=== PATIENT | male | born 1970 | race Caucasian/White ===

== ENCOUNTER 2018-03-16 18:59 | Inpatient (IN) | payer MEDICAID ==
[~2018-03-16] VITALS: Ht 188 cm; Wt 65.8 kg
[2018-03-16] MEDS ORDERED: CREON (PANCRELI1 CAP PO (19:07)
[2018-03-16] MEDS ORDERED: NEURONTIN800 MG PO (19:07)
[2018-03-16] MEDS ORDERED: LISINOPRIL10 MG PO (19:07)
[2018-03-16] MEDS ORDERED: DOLOPHINE HCL10 MG PO (19:08)
[2018-03-16] MEDS ORDERED: OXYCODONE HCL10 MG PO (19:08)
[2018-03-16] MEDS ORDERED: NOVOLIN 70/30 110 ML (19:08)
[2018-03-16 19:42] LABS: BASOPHILS 0.5 % (0-2); EOSINOPHILS 2.6 % (0-7); HEMOGLOBIN 16.5 g/dL (13.5-17.5); IMMATURE GRANULOCYTES 0.4 % (0-5); LYMPHOCYTES 45.5 % (15-50); MCH 29.9 pg (26.0-34.0); MCHC 33.7 g/dL (31.0-37.0); MCV 88.8 fL (80.0-100.0); MEAN PLATELET VOLUME 9.6 fL (7.4-10.4); MONOCYTES 6.3 % (2-11); NEUTROPHILS 44.7 % (40-80); PLATELET COUNT 316 10x3/uL (130-400); RBC 5.52 10x6/uL (4.20-6.10); RDW 14.4 % (11.5-14.5); WBC 8.1 10x3/uL (4.8-10.8)
[2018-03-16 20:29] LABS: ALBUMIN 3.5 g/dL (3.4-5.0); ALKALINE PHOSPHATASE 223 U/L (46-116); ALT (SGPT) 38 U/L (10-68); AMYLASE - SERUM 48 U/L (25-115); BILIRUBIN - TOTAL 0.47 mg/dL (0.2-1.3); CALC OSMOLALITY 297 mosm/kg (275-300); CALCIUM 9.1 mg/dL (8.5-10.1); CARBON DIOXIDE 28.2 mmol/L (21.0-32.0); CHLORIDE - SERUM 98 mmol/L (98-107); CREATININE - SERUM 0.8 mg/dL (0.6-1.3); GLUCOSE 331 mg/dL (74-106); LIPASE 246 U/L (73-393); POTASSIUM - SERUM 3.5 mmol/L (3.5-5.1); PROTEIN - SERUM 7.5 g/dL (6.4-8.2); SODIUM 143 mmol/L (136-145); UREA NITROGEN 12 mg/dL (7-18); eGFR NON AFRICAN AMERICAN > 90 mL/min (90-120)
[2018-03-16 21:30] VITALS: BP 118/88
[2018-03-16 21:52] LABS: APPEARANCE CLEAR (CLEAR); BILIRUBIN NEGATIVE (NEGATIVE); COLOR YELLOW (YELLOW); GLUCOSE 1000 mg/dL (NEGATIVE); KETONE SMALL mg/dL (NEGATIVE); NITRITE NEGATIVE (NEGATIVE); PROTEIN NEGATIVE (NEGATIVE); SPECIFIC GRAVITY 1.015 (1.005-1.020); UROBILINOGEN NORMAL (NORMAL)
[2018-03-16 21:55] LABS: BACTERIA FEW /hpf (NONE SEEN); RED CELLS - URINE 0-5 /hpf (0-5)
[2018-03-16 23:40] LABS: UDS - AMPHET NEGATIVE QUAL (NEGATIVE); UDS - BARB NEGATIVE QUAL (NEGATIVE); UDS - BENZO NEGATIVE QUAL (NEGATIVE); UDS - COCAINE NEGATIVE QUAL (NEGATIVE); UDS - OPIATE NEGATIVE QUAL (NEGATIVE); UDS - PCP NEGATIVE QUAL (NEGATIVE); UDS - THC POSITIVE QUAL (NEGATIVE)
[2018-03-17] MEDS ORDERED: PROTONIX40 MG PO (00:08)
[2018-03-17] MEDS ORDERED: LEVEMIR FLEX TOUCH P (00:12)
[2018-03-17 00:26] VITALS: BP 139/93; BMI 18.6
[2018-03-17 04:00] VITALS: BP 141/80
[2018-03-17 06:40] LABS: BASOPHILS 0.2 % (0-2); EOSINOPHILS 1.5 % (0-7); HEMATOCRIT 44.8 % (42.0-54.0); IMMATURE GRANULOCYTES 0.2 % (0-5); LYMPHOCYTES 30.7 % (15-50); MCH 29.9 pg (26.0-34.0); MCHC 33.5 g/dL (31.0-37.0); MCV 89.2 fL (80.0-100.0); MONOCYTES 10.9 % (2-11); NEUTROPHILS 56.5 % (40-80); RBC 5.02 10x6/uL (4.20-6.10); RDW 14.7 % (11.5-14.5); WBC 8.5 10x3/uL (4.8-10.8)
[2018-03-17 07:15] LABS: PLATELET COUNT 221 10x3/uL (130-400)
[2018-03-17 07:23] LABS: ALBUMIN 3.7 g/dL (3.4-5.0); ALKALINE PHOSPHATASE 218 U/L (46-116); ALT (SGPT) 34 U/L (10-68); BILIRUBIN - TOTAL 0.92 mg/dL (0.2-1.3); CALC OSMOLALITY 282 mosm/kg (275-300); CALCIUM 8.5 mg/dL (8.5-10.1); CHLORIDE - SERUM 98 mmol/L (98-107); CREATININE - SERUM 0.7 mg/dL (0.6-1.3); MAGNESIUM - SERUM 1.6 mg/dL (1.8-2.4); PHOSPHOROUS 3.8 mg/dL (2.5-4.9); POTASSIUM - SERUM 3.1 mmol/L (3.5-5.1); PROTEIN - SERUM 7.5 g/dL (6.4-8.2); SODIUM 141 mmol/L (136-145); UREA NITROGEN 13 mg/dL (7-18); eGFR NON AFRICAN AMERICAN > 90 mL/min (90-120)
[2018-03-17 07:25] LABS: GLUCOSE 142 mg/dL (74-106)
[2018-03-17 08:08] VITALS: BP 145/92
[2018-03-17 13:00] VITALS: BMI 18.6
[2018-03-17 13:40] VITALS: BP 136/87
[2018-03-17 14:21] VITALS: Ht 188 cm; Wt 65.8 kg
[2018-03-17] MEDS ORDERED: CYMBALTA30 MG PO (15:03)
[2018-03-17 20:00] VITALS: BP 146/93
[2018-03-18 05:47] VITALS: BP 130/83
[2018-03-18 06:00] LABS: BASOPHILS 0.1 % (0-2); EOSINOPHILS 3.1 % (0-7); HEMATOCRIT 40.7 % (42.0-54.0); HEMOGLOBIN 13.7 g/dL (13.5-17.5); IMMATURE GRANULOCYTES 0.3 % (0-5); LYMPHOCYTES 26.5 % (15-50); MCHC 33.7 g/dL (31.0-37.0); MCV 89.1 fL (80.0-100.0); MEAN PLATELET VOLUME 9.8 fL (7.4-10.4); MONOCYTES 6.6 % (2-11); NEUTROPHILS 63.4 % (40-80); PLATELET COUNT 179 10x3/uL (130-400); RBC 4.57 10x6/uL (4.20-6.10); RDW 14.5 % (11.5-14.5); WBC 6.7 10x3/uL (4.8-10.8)
[2018-03-18 06:31] LABS: ALBUMIN 3.5 g/dL (3.4-5.0); ALKALINE PHOSPHATASE 205 U/L (46-116); ALT (SGPT) 35 U/L (10-68); BILIRUBIN - TOTAL 0.96 mg/dL (0.2-1.3); CALCIUM 8.7 mg/dL (8.5-10.1); CARBON DIOXIDE 29.1 mmol/L (21.0-32.0); CHLORIDE - SERUM 99 mmol/L (98-107); CREATININE - SERUM 0.6 mg/dL (0.6-1.3); PROTEIN - SERUM 7.6 g/dL (6.4-8.2); SODIUM 138 mmol/L (136-145); eGFR NON AFRICAN AMERICAN > 90 mL/min (90-120)
[2018-03-18 06:34] LABS: CALC OSMOLALITY 272 mosm/kg (275-300); GLUCOSE 87 mg/dL (74-106); UREA NITROGEN 6 mg/dL (7-18)
[2018-03-18 09:13] VITALS: BP 158/94
[2018-03-18 12:28] VITALS: BP 140/83
[2018-03-18 19:27] VITALS: BP 134/81
[2018-03-19 05:31] LABS: BASOPHILS 0.2 % (0-2); EOSINOPHILS 4.5 % (0-7); HEMATOCRIT 40.2 % (42.0-54.0); HEMOGLOBIN 13.6 g/dL (13.5-17.5); IMMATURE GRANULOCYTES 0.4 % (0-5); LYMPHOCYTES 23.7 % (15-50); MCH 30.1 pg (26.0-34.0); MCHC 33.8 g/dL (31.0-37.0); MCV 88.9 fL (80.0-100.0); MEAN PLATELET VOLUME 10.1 fL (7.4-10.4); NEUTROPHILS 63.2 % (40-80); PLATELET COUNT 159 10x3/uL (130-400); RBC 4.52 10x6/uL (4.20-6.10); RDW 14.3 % (11.5-14.5); WBC 5.1 10x3/uL (4.8-10.8)
[2018-03-19 05:45] LABS: APTT 29.6 SECONDS (22.8-39.4); INR 0.99 (0.85-1.17); PROTIME 12.7 SECONDS (11.6-15.0)
[2018-03-19 05:50] LABS: ALBUMIN 3.4 g/dL (3.4-5.0); ALKALINE PHOSPHATASE 224 U/L (46-116); ALT (SGPT) 41 U/L (10-68); CALC OSMOLALITY 280 mosm/kg (275-300); CALCIUM 8.6 mg/dL (8.5-10.1); CHLORIDE - SERUM 97 mmol/L (98-107); CREATININE - SERUM 0.7 mg/dL (0.6-1.3); GLUCOSE 288 mg/dL (74-106); POTASSIUM - SERUM 3.6 mmol/L (3.5-5.1); PROTEIN - SERUM 6.9 g/dL (6.4-8.2); SODIUM 136 mmol/L (136-145); UREA NITROGEN 6 mg/dL (7-18); eGFR NON AFRICAN AMERICAN > 90 mL/min (90-120)
[2018-03-19 11:40] VITALS: BP 157/95
[2018-03-19 20:00] VITALS: BP 133/84
[2018-03-20 04:00] VITALS: BP 148/99
[2018-03-20 05:33] LABS: BASOPHILS 0.2 % (0-2); EOSINOPHILS 4.8 % (0-7); HEMATOCRIT 42.8 % (42.0-54.0); HEMOGLOBIN 14.5 g/dL (13.5-17.5); IMMATURE GRANULOCYTES 0.2 % (0-5); LYMPHOCYTES 31.4 % (15-50); MCHC 33.9 g/dL (31.0-37.0); MCV 88.6 fL (80.0-100.0); MEAN PLATELET VOLUME 10.4 fL (7.4-10.4); MONOCYTES 7.2 % (2-11); NEUTROPHILS 56.2 % (40-80); PLATELET COUNT 174 10x3/uL (130-400); RBC 4.83 10x6/uL (4.20-6.10); RDW 14.2 % (11.5-14.5); WBC 5.3 10x3/uL (4.8-10.8)
[2018-03-20 06:01] LABS: ALBUMIN 3.4 g/dL (3.4-5.0); ALKALINE PHOSPHATASE 258 U/L (46-116); BILIRUBIN - TOTAL 0.85 mg/dL (0.2-1.3); CALCIUM 8.9 mg/dL (8.5-10.1); CARBON DIOXIDE 26.1 mmol/L (21.0-32.0); CHLORIDE - SERUM 95 mmol/L (98-107); CREATININE - SERUM 0.7 mg/dL (0.6-1.3); POTASSIUM - SERUM 3.5 mmol/L (3.5-5.1); PROTEIN - SERUM 7.7 g/dL (6.4-8.2); SODIUM 131 mmol/L (136-145); eGFR NON AFRICAN AMERICAN > 90 mL/min (90-120)
[2018-03-20 06:02] LABS: ALT (SGPT) 52 U/L (10-68); CALC OSMOLALITY 275 mosm/kg (275-300); GLUCOSE 390 mg/dL (74-106); UREA NITROGEN 3 mg/dL (7-18)
[2018-03-20 09:20] VITALS: BP 142/95
[2018-03-20 14:08] VITALS: BP 127/82
[2018-03-20 20:00] VITALS: BP 139/94
[2018-03-21 04:00] VITALS: BP 120/80
[2018-03-21 06:15] LABS: BASOPHILS 0.2 % (0-2); EOSINOPHILS 4.7 % (0-7); HEMOGLOBIN 13.7 g/dL (13.5-17.5); IMMATURE GRANULOCYTES 0.4 % (0-5); LYMPHOCYTES 27.1 % (15-50); MCH 30.1 pg (26.0-34.0); MCHC 34.3 g/dL (31.0-37.0); MCV 87.9 fL (80.0-100.0); MEAN PLATELET VOLUME 10.2 fL (7.4-10.4); MONOCYTES 8.8 % (2-11); NEUTROPHILS 58.8 % (40-80); PLATELET COUNT 162 10x3/uL (130-400); RBC 4.55 10x6/uL (4.20-6.10); RDW 14.2 % (11.5-14.5); WBC 4.7 10x3/uL (4.8-10.8)
[2018-03-21 06:36] LABS: ALKALINE PHOSPHATASE 238 U/L (46-116); ALT (SGPT) 63 U/L (10-68); BILIRUBIN - TOTAL 0.63 mg/dL (0.2-1.3); CALC OSMOLALITY 281 mosm/kg (275-300); CALCIUM 8.9 mg/dL (8.5-10.1); CARBON DIOXIDE 26.3 mmol/L (21.0-32.0); CHLORIDE - SERUM 100 mmol/L (98-107); CREATININE - SERUM 0.7 mg/dL (0.6-1.3); LIPASE 208 U/L (73-393); POTASSIUM - SERUM 3.3 mmol/L (3.5-5.1); PROTEIN - SERUM 6.7 g/dL (6.4-8.2); SODIUM 137 mmol/L (136-145); UREA NITROGEN 3 mg/dL (7-18); eGFR NON AFRICAN AMERICAN > 90 mL/min (90-120)
[2018-03-21 06:38] LABS: GLUCOSE 304 mg/dL (74-106)
[2018-03-21 08:15] VITALS: BP 121/90
[2018-03-21 13:20] VITALS: BP 137/93
[2018-03-21 16:21] VITALS: BP 138/92
[2018-03-21 23:06] VITALS: BP 137/87
[2018-03-22 07:14] LABS: BASOPHILS 0.2 % (0-2); EOSINOPHILS 3.7 % (0-7); HEMATOCRIT 39.1 % (42.0-54.0); HEMOGLOBIN 12.7 g/dL (13.5-17.5); IMMATURE GRANULOCYTES 0.2 % (0-5); LYMPHOCYTES 30.8 % (15-50); MCH 29.5 pg (26.0-34.0); MCHC 32.5 g/dL (31.0-37.0); MCV 90.9 fL (80.0-100.0); MEAN PLATELET VOLUME 10.4 fL (7.4-10.4); MONOCYTES 10.3 % (2-11); NEUTROPHILS 54.8 % (40-80); PLATELET COUNT 161 10x3/uL (130-400); RDW 14.6 % (11.5-14.5); WBC 4.7 10x3/uL (4.8-10.8)
[2018-03-22 07:41] LABS: ALBUMIN 3.2 g/dL (3.4-5.0); ALKALINE PHOSPHATASE 252 U/L (46-116); ALT (SGPT) 57 U/L (10-68); BILIRUBIN - TOTAL 0.48 mg/dL (0.2-1.3); CALCIUM 8.6 mg/dL (8.5-10.1); CARBON DIOXIDE 29.4 mmol/L (21.0-32.0); CHLORIDE - SERUM 95 mmol/L (98-107); POTASSIUM - SERUM 3.7 mmol/L (3.5-5.1); PROTEIN - SERUM 7.2 g/dL (6.4-8.2); SODIUM 131 mmol/L (136-145)
[2018-03-22 08:00] LABS: CALC OSMOLALITY 281 mosm/kg (275-300); CREATININE - SERUM 0.9 mg/dL (0.6-1.3); GLUCOSE 516 mg/dL (74-106); UREA NITROGEN 2 mg/dL (7-18); eGFR NON AFRICAN AMERICAN > 90 mL/min (90-120)
[2018-03-22 08:28] VITALS: BP 141/90
[2018-03-22] MEDS ORDERED: OXYCODONE HCL10 MG PO (12:05)
[2018-03-22] MEDS ORDERED: Nicoderm [PBKC] TRANSDERM (12:05)
[2018-03-22] MEDS ORDERED: DOLOPHINE HCL10 MG PO (12:06)
== END 2018-03-22 17:59 | disposition home or self-care (01) | DRG 438 ==
LOC: D.ER 18:59 → D.MS 23:19 → OBSVTIME 23:19 → D.MS 23:19
PROVIDERS: Family Medicine; Internal Medicine Gastroenterology; Internal Medicine Nephrology
PROC: 0DB98ZX Excision of Duodenum, Via Natural or Artificial Opening Endoscopic, Diagnostic (ICD-10-PCS; principal; 2018-03-18 11:00)
PROC: 0FBG3ZX Excision of Pancreas, Percutaneous Approach, Diagnostic (ICD-10-PCS; 2018-03-19)
DX: K85.90 Acute pancreatitis without necrosis or infection, unspecified (principal); E43 Unspecified severe protein-calorie malnutrition; K31.1 Adult hypertrophic pyloric stenosis; F17.203 Nicotine dependence unspecified, with withdrawal; Z68.1 Body mass index [BMI] 19.9 or less, adult; K86.89 Other specified diseases of pancreas; K86.1 Other chronic pancreatitis; I10 Essential (primary) hypertension; E11.9 Type 2 diabetes mellitus without complications; Z79.4 Long term (current) use of insulin; K44.9 Diaphragmatic hernia without obstruction or gangrene; G89.29 Other chronic pain

== ENCOUNTER 2018-04-25 13:58 | Inpatient (IN) | payer MEDICAID ==
[~2018-04-25] VITALS: Ht 188 cm; Wt 63.5 kg
--- NOTE | ~2018-04-25 | MORECARE ---
CASE MANAGEMENT DISCHARGE SUMMARY PATIENT: GINGER GIMENEZ UNIT: [id number] ADM DATE: 04/25/18 AGE: 47 : 68 SEX: M ROOM/BED: D.2214 AUTHOR: DENNIS,DOC PHYSICIAN: REFERRING PHYSICIAN: KASIA WARNER MD DATE OF SERVICE: 04/28/18 Discharge Plan Patient Name: GINGER GIMENEZ Facility: [facility]:[place] : 1970 Planned Disposition: Home or Self Care Anticipated Discharge Date: Discharge Date: Expected LOS: Initial Reviewer: [email or web address] Initial Review Date: 04/25/2018 Generated: 04/28/18 12:34 pm Comments DCP- Discharge Planning Updated by [email or web address]: Sara Goyal on 04/28/18 10:[address] Patient Name: GINGER GIMENEZ Admission Status: ER Accout number: [id number] Admission Date: 04-25-2018 : 1970 Admission Diagnosis: Attending: KASIA WARNER Current LOS: 3 Anticipated DC Date: Planned Disposition: Home or Self Care Primary Insurance: MEDICAID [place] Discharge Planning Comments: CM met with patient to assess discharge planning needs. Patient lives independently at home where he plans to return at discharge. His friend Gaby will be the one to take him home at discharge. He lost his WENDY, but it has been reinstated and now he can get his medications again. He denies HH or DME and does not think that he will need anything at discharge. CM will continue to follow and assist with DC planning as needed Supervisor [employer] Installation: Sara Goyal DCPIA - Discharge Planning Initial Assessment Updated by [email or web address]: Sara Goyal on 04/28/18 11:27 am * Is the patient Alert and Oriented? Yes * How many steps to enter\exit or inside your home? UKN * PCP NONE * Pharmacy [facility] * Preadmission Environment Home with Family * ADLs Independent * Equipment None * Please name any agencies selected above. NONE * Additional services required to return to the preadmission environment? No * Can the patient safely return to the preadmission environment? Yes * Has this patient been hospitalized within the prior 30 days at any hospital? No Last DP export: 04/28/18 10:27 a Patient Name: GINGER GIMENEZ Page 62740 at 1134 All edits/amendments must be made on the electronic document DICTATION DATE: 04/28/18 113 CENTRIFUGAL DRIER OPERATOR: BLANK 04/28/18 1134 RPT#: [id number] DC DATE: STATUS: ADM IN [facility] [address] [place] [address] END OF REPORT
--- NOTE | ~2018-04-25 | MORECARE ---
CASE MANAGEMENT DISCHARGE SUMMARY PATIENT: GINGER GIMENEZ UNIT: [id number] ADM DATE: 04/25/18 AGE: 47 : 68 SEX: M ROOM/BED: D.2214 AUTHOR: DENNISDOC PHYSICIAN: REFERRING PHYSICIAN: KASIA WARNER MD DATE OF SERVICE: 04/29/18 Discharge Plan Patient Name: GINGER GIMENEZ Facility: [facility]:[place] : 1970 Planned Disposition: Home or Self Care Anticipated Discharge Date: Discharge Date: Expected LOS: Initial Reviewer: [email or web address] Initial Review Date: 04/25/2018 Generated: 04/29/18 3:55 pm Comments DCP- Discharge Planning Updated by [email or web address]: Sara Goyal on 04/29/18 1:[address] Patient Name: GINGER GIMENEZ Encounter No: [id number] : 1970 Primary Insurance: MEDICAID [place] Anticipated DC Date: Planned Disposition: Home or Self Care External Planned Provider: : DCP follow-up note: Patient and family in agreement with discharge plan. No changes to plan. Case management will follow and assist as needed. Sara Goyal DCP- Discharge Planning Updated by [email or web address]: Sara Goyla on 04/28/18 10:[address] Patient Name: GINGER GIMENEZ Admission Status: ER Accout number: [id number] Admission Date: 04-25-2018 : 1970 Admission Diagnosis: Attending: KASIA WARNER Current LOS: 3 Anticipated DC Date: Planned Disposition: Home or Self Care Primary Insurance: MEDICAID [place] Discharge Planning Comments: CM met with patient to assess discharge planning needs. Patient lives independently at home where he plans to return at discharge. His friend Gaby will be the one to take him home at discharge. He lost his WENDY, but it has been reinstated and now he can get his medications again. He denies HH or DME and does not think that he will need anything at discharge. CM will continue to follow and assist with DC planning as needed Server Support Technician: Sara Goyal DCPIA - Discharge Planning Initial Assessment Updated by [email or web address]: Sara Goyal on 04/28/18 11:27 am * Is the patient Alert and Oriented? Yes * How many steps to enter\exit or inside your home? UKN * PCP NONE * [facility] * Preadmission Environment Home with Family * ADLs Independent * Equipment None * Please name any agencies selected above. NONE * Additional services required to return to the preadmission environment? No * Can the patient safely return to the preadmission environment? Yes * Has this patient been hospitalized within the prior 30 days at any hospital? No Last DP export: 04/28/18 10:34 a Patient Name: GINGER GIMENEZ Page 47373 at 1455 All edits/amendments must be made on the electronic document DICTATION DATE: 04/29/181454 KEYCASE ASSEMBLER: BLANK 04/29/181454 RPT#: [id number] DC DATE: STATUS: ADM IN [facility] [address] [place] [address] END OF REPORT
--- NOTE | ~2018-04-25 | MORECARE ---
CASE MANAGEMENT DISCHARGE SUMMARY PATIENT: GINGER GIMENEZ UNIT: [id number] ADM DATE: 04/25/18 AGE: 47 : 68 SEX: M ROOM/BED: D.2214 AUTHOR: TOM COLLINS PHYSICIAN: REFERRING PHYSICIAN: KASIA WARNER MD DATE OF SERVICE: 04/28/18 Discharge Plan Patient Name: GINGER GIMENEZ [facility] [facility] 1970 Planned Disposition: Home or Self Care Anticipated Discharge Date: Discharge Date: Expected LOS: Initial Reviewer: [email or web address] Initial Review Date: 04/25/2018 Generated: 04/28/18 12:26 pm DCPIA - Discharge Planning Initial Assessment Updated by [email or web address]: Sara oGyal on 04/28/18 11:27 am * Is the patient Alert and Oriented? Yes * How many steps to enter\exit or inside your home? UKN * PCP NONE * Pharmacy [facility] ON [facility] * Preadmission Environment Home with Family * ADLs Independent * Equipment None * Please name any agencies selected above. NONE * Additional services required to return to the preadmission environment? No * Can the patient safely return to the preadmission environment? Yes * Has this patient been hospitalized within the prior 30 days at any hospital? No Patient Name: GINGER GIMENEZ Page 41639 at 1127 All edits/amendments must be made on the electronic document DICTATION DATE: 04/28/18 1126 RESOURCE ANALYST: BLANK 04/28/18 1126 RPT#: [id number] DC DATE: STATUS: ADM IN [facility] [address] [place] [address] END OF REPORT
--- NOTE | ~2018-04-25 | MORECARE ---
CASE MANAGEMENT DISCHARGE SUMMARY PATIENT: GINGER GIMENEZ UNIT: [id number] ADM DATE: 04/25/18 AGE: 47 : 68 SEX: M ROOM/BED: D.2214 AUTHOR: DENNISDOC PHYSICIAN: REFERRING PHYSICIAN: KASIA WARNER MD DATE OF SERVICE: 05/05/18 Discharge Plan Patient Name: GINGER GIMENEZ Facility: [facility]:[place] : 1970 Planned Disposition: Home or Self Care Anticipated Discharge Date: Discharge Date: 04/29/2018 Expected LOS: 0 Initial Reviewer: [email or web address] Initial Review Date: 04/25/2018 Generated: 05/05/18 10:33 am Comments DCP- Discharge Planning Updated by [email or web address]: Sara Goyal on 04/29/18 1:[address] Patient Name: GINGER GIMENEZ Encounter No: [id number] : 1970 Primary Insurance: MEDICAID [place] Anticipated DC Date: Planned Disposition: Home or Self Care External Planned Provider: : DCP follow-up note: Patient and family in agreement with discharge plan. No changes to plan. Case management will follow and assist as needed. Sara Goyal DCP- Discharge Planning Updated by [email or web address]: Sara Goyal on 04/28/18 10:[address] Patient Name: GINGER GIMENEZ Admission Status: ER Accout number: [id number] Admission Date: 04-25-2018 : 1970 Admission Diagnosis: Attending: KASIA WARNER Current LOS: 3 Anticipated DC Date: Planned Disposition: Home or Self Care Primary Insurance: MEDICAID [place] Discharge Planning Comments: CM met with patient to assess discharge planning needs. Patient lives independently at home where he plans to return at discharge. His friend Gaby will be the one to take him home at discharge. He lost his WENDY, but it has been reinstated and now he can get his medications again. He denies HH or DME and does not think that he will need anything at discharge. CM will continue to follow and assist with DC planning as needed Order Schedule Clerk: Saar Goyal DCPIA - Discharge Planning Initial Assessment Updated by [email or web address]: Sara Goyal on 04/28/18 11:27 am * Is the patient Alert and Oriented? Yes * How many steps to enter\exit or inside your home? UKN * PCP NONE * [facility] [place] * Preadmission Environment Home with Family * ADLs Independent * Equipment None * Please name any agencies selected above. NONE * Additional services required to return to the preadmission environment? No * Can the patient safely return to the preadmission environment? Yes * Has this patient been hospitalized within the prior 30 days at any hospital? No Last DP export: 04/29/18 1:55 p Patient Name: GINGER GIMENEZ Page 51989 at 0934 All edits/amendments must be made on the electronic document DICTATION DATE: 05/05/18932 BEHAVIORAL CONSULTANT: BLANK 05/05/18932 RPT#: [id number] DC DATE:04/29/18 STATUS: DIS IN [facility] [address] [place] [address] END OF REPORT
[~2018-04-25 13:58] MED LIST: CREON (PANCRELI1 CAP PO; CYMBALTA30 MG PO; DOLOPHINE HCL10 MG PO; LEVEMIR FLEX TOUCH P; LISINOPRIL10 MG PO; NEURONTIN800 MG PO; NOVOLIN 70/30 110 ML; Nicoderm [PBKC] TRANSDERM; OXYCODONE HCL10 MG PO; PROTONIX40 MG PO
[2018-04-25 14:37] LABS: BASOPHILS 0.5 % (0-2); EOSINOPHILS 4.2 % (0-7); HEMATOCRIT 46.7 % (42.0-54.0); HEMOGLOBIN 15.7 g/dL (13.5-17.5); IMMATURE GRANULOCYTES 0.3 % (0-5); LYMPHOCYTES 42.5 % (15-50); MCH 29.7 pg (26.0-34.0); MCHC 33.6 g/dL (31.0-37.0); MCV 88.4 fL (80.0-100.0); MEAN PLATELET VOLUME 9.8 fL (7.4-10.4); NEUTROPHILS 47.5 % (40-80); PLATELET COUNT 174 10x3/uL (130-400); RBC 5.28 10x6/uL (4.20-6.10); RDW 15.1 % (11.5-14.5); WBC 6.4 10x3/uL (4.8-10.8)
[2018-04-25 15:31] LABS: ALBUMIN 3.7 g/dL (3.4-5.0); ALKALINE PHOSPHATASE 83 U/L (46-116); ALT (SGPT) 15 U/L (10-68); BILIRUBIN - TOTAL 0.32 mg/dL (0.2-1.3); CALC OSMOLALITY 292 mosm/kg (275-300); CALCIUM 9.2 mg/dL (8.5-10.1); CARBON DIOXIDE 29.4 mmol/L (21.0-32.0); CHLORIDE - SERUM 101 mmol/L (98-107); CREATININE - SERUM 0.7 mg/dL (0.6-1.3); PROTEIN - SERUM 7.6 g/dL (6.4-8.2); SODIUM 143 mmol/L (136-145); UREA NITROGEN 8 mg/dL (7-18); eGFR NON AFRICAN AMERICAN > 90 mL/min (90-120)
[2018-04-25 15:32] LABS: GLUCOSE 287 mg/dL (74-106)
[2018-04-25 15:35] LABS: AMYLASE - SERUM 50 U/L (25-115); LIPASE 260 U/L (73-393)
[2018-04-25 15:51] LABS: TROPONIN-I < 0.017 ng/mL (0.000-0.060)
[2018-04-25 18:10] LABS: APPEARANCE CLEAR (CLEAR); BILIRUBIN NEGATIVE (NEGATIVE); COLOR YELLOW (YELLOW); GLUCOSE 1000 mg/dL (NEGATIVE); KETONE NEGATIVE (NEGATIVE); NITRITE NEGATIVE (NEGATIVE); PROTEIN TRACE mg/dL (NEGATIVE); SPECIFIC GRAVITY 1.015 (1.005-1.020); UROBILINOGEN NORMAL (NORMAL)
[2018-04-25 18:32] LABS: UDS - AMPHET NEGATIVE QUAL (NEGATIVE); UDS - BARB NEGATIVE QUAL (NEGATIVE); UDS - BENZO NEGATIVE QUAL (NEGATIVE); UDS - COCAINE NEGATIVE QUAL (NEGATIVE); UDS - OPIATE POSITIVE QUAL (NEGATIVE); UDS - PCP NEGATIVE QUAL (NEGATIVE); UDS - THC NEGATIVE QUAL (NEGATIVE)
[2018-04-25 18:33] VITALS: BP 166/96
[2018-04-25 18:46] LABS: INR 0.86 (0.85-1.17); PROTIME 11.4 SECONDS (11.6-15.0)
[2018-04-25 21:18] VITALS: BP 155/79
[2018-04-25 23:32] VITALS: BP 155/79; BMI 18.0
[2018-04-26 04:29] VITALS: BP 140/81
[2018-04-26 09:17] VITALS: BP 157/90
[2018-04-26 12:48] LABS: BASOPHILS 0.1 % (0-2); EOSINOPHILS 3.2 % (0-7); HEMATOCRIT 44.5 % (42.0-54.0); HEMOGLOBIN 14.9 g/dL (13.5-17.5); IMMATURE GRANULOCYTES 0.4 % (0-5); LYMPHOCYTES 23.8 % (15-50); MCH 29.7 pg (26.0-34.0); MCHC 33.5 g/dL (31.0-37.0); MCV 88.6 fL (80.0-100.0); MEAN PLATELET VOLUME 10.1 fL (7.4-10.4); MONOCYTES 5.5 % (2-11); PLATELET COUNT 129 10x3/uL (130-400); RBC 5.02 10x6/uL (4.20-6.10); RDW 14.9 % (11.5-14.5); WBC 7.2 10x3/uL (4.8-10.8)
[2018-04-26 13:06] VITALS: Ht 188 cm; Wt 63.5 kg
[2018-04-26 13:17] LABS: ALBUMIN 3.5 g/dL (3.4-5.0); ALKALINE PHOSPHATASE 93 U/L (46-116); ALT (SGPT) 17 U/L (10-68); AMYLASE - SERUM 38 U/L (25-115); CALCIUM 8.8 mg/dL (8.5-10.1); CHLORIDE - SERUM 99 mmol/L (98-107); CREATININE - SERUM 0.6 mg/dL (0.6-1.3); LIPASE 172 U/L (73-393); POTASSIUM - SERUM 3.4 mmol/L (3.5-5.1); PROTEIN - SERUM 7.7 g/dL (6.4-8.2); SODIUM 138 mmol/L (136-145); eGFR NON AFRICAN AMERICAN > 90 mL/min (90-120)
[2018-04-26 13:20] LABS: CALC OSMOLALITY 277 mosm/kg (275-300); GLUCOSE 184 mg/dL (74-106); UREA NITROGEN 3 mg/dL (7-18)
[2018-04-26 17:00] VITALS: BP 148/93
[2018-04-26 20:43] VITALS: BP 133/91
[2018-04-27] VITALS (7 sets, daily range): BP systolic 135–157; BP diastolic 80–97
[2018-04-27 06:07] LABS: BASOPHILS 0.2 % (0-2); EOSINOPHILS 4.9 % (0-7); HEMOGLOBIN 13.4 g/dL (13.5-17.5); IMMATURE GRANULOCYTES 0.2 % (0-5); LYMPHOCYTES 21.5 % (15-50); MCH 29.5 pg (26.0-34.0); MCHC 32.7 g/dL (31.0-37.0); MCV 90.1 fL (80.0-100.0); MEAN PLATELET VOLUME 10.3 fL (7.4-10.4); MONOCYTES 9.4 % (2-11); NEUTROPHILS 63.8 % (40-80); PLATELET COUNT 151 10x3/uL (130-400); RBC 4.55 10x6/uL (4.20-6.10); RDW 14.8 % (11.5-14.5); WBC 6.1 10x3/uL (4.8-10.8)
[2018-04-27 06:36] LABS: ALKALINE PHOSPHATASE 77 U/L (46-116); ALT (SGPT) 12 U/L (10-68); AMYLASE - SERUM 30 U/L (25-115); BILIRUBIN - TOTAL 0.69 mg/dL (0.2-1.3); CALC OSMOLALITY 275 mosm/kg (275-300); CALCIUM 8.4 mg/dL (8.5-10.1); CARBON DIOXIDE 26.5 mmol/L (21.0-32.0); CHLORIDE - SERUM 99 mmol/L (98-107); CREATININE - SERUM 0.6 mg/dL (0.6-1.3); GLUCOSE 336 mg/dL (74-106); LIPASE 177 U/L (73-393); PROTEIN - SERUM 6.9 g/dL (6.4-8.2); SODIUM 133 mmol/L (136-145); UREA NITROGEN 3 mg/dL (7-18); eGFR NON AFRICAN AMERICAN > 90 mL/min (90-120)
[2018-04-28 01:00] VITALS: BP 143/87
[2018-04-28 06:55] LABS: BASOPHILS 0.2 % (0-2); EOSINOPHILS 4.1 % (0-7); HEMATOCRIT 40.5 % (42.0-54.0); HEMOGLOBIN 13.4 g/dL (13.5-17.5); IMMATURE GRANULOCYTES 0.2 % (0-5); MCH 29.3 pg (26.0-34.0); MCHC 33.1 g/dL (31.0-37.0); MCV 88.6 fL (80.0-100.0); MEAN PLATELET VOLUME 10.6 fL (7.4-10.4); MONOCYTES 8.1 % (2-11); NEUTROPHILS 72.4 % (40-80); PLATELET COUNT 180 10x3/uL (130-400); RBC 4.57 10x6/uL (4.20-6.10); RDW 14.9 % (11.5-14.5); WBC 6.7 10x3/uL (4.8-10.8)
[2018-04-28 07:34] LABS: ALBUMIN 3.1 g/dL (3.4-5.0); ALKALINE PHOSPHATASE 83 U/L (46-116); AMYLASE - SERUM 27 U/L (25-115); BILIRUBIN - TOTAL 0.44 mg/dL (0.2-1.3); CALCIUM 9.1 mg/dL (8.5-10.1); CARBON DIOXIDE 24.8 mmol/L (21.0-32.0); CHLORIDE - SERUM 99 mmol/L (98-107); GLUCOSE 329 mg/dL (74-106); LIPASE 158 U/L (73-393); PROTEIN - SERUM 7.2 g/dL (6.4-8.2); SODIUM 135 mmol/L (136-145)
[2018-04-28 07:35] LABS: ALT (SGPT) 17 U/L (10-68); CALC OSMOLALITY 278 mosm/kg (275-300); CREATININE - SERUM 0.8 mg/dL (0.6-1.3); UREA NITROGEN 2 mg/dL (7-18); eGFR NON AFRICAN AMERICAN > 90 mL/min (90-120)
[2018-04-28 08:24] VITALS: BP 145/92
[2018-04-28 11:03] VITALS: BP 145/92
[2018-04-28 20:00] VITALS: BP 149/85
[2018-04-29] VITALS: BP 153/96
[2018-04-29 04:00] VITALS: BP 161/98
[2018-04-29 06:14] LABS: BASOPHILS 0.2 % (0-2); HEMATOCRIT 41.1 % (42.0-54.0); HEMOGLOBIN 13.7 g/dL (13.5-17.5); IMMATURE GRANULOCYTES 0.2 % (0-5); LYMPHOCYTES 36.4 % (15-50); MCH 29.7 pg (26.0-34.0); MCHC 33.3 g/dL (31.0-37.0); MEAN PLATELET VOLUME 10.6 fL (7.4-10.4); MONOCYTES 9.1 % (2-11); NEUTROPHILS 49.1 % (40-80); PLATELET COUNT 169 10x3/uL (130-400); RBC 4.62 10x6/uL (4.20-6.10); RDW 15.1 % (11.5-14.5)
[2018-04-29 06:48] LABS: ALBUMIN 2.9 g/dL (3.4-5.0); ALKALINE PHOSPHATASE 76 U/L (46-116); ALT (SGPT) 15 U/L (10-68); BILIRUBIN - TOTAL 0.39 mg/dL (0.2-1.3); CALC OSMOLALITY 283 mosm/kg (275-300); CALCIUM 8.7 mg/dL (8.5-10.1); CARBON DIOXIDE 27.3 mmol/L (21.0-32.0); CHLORIDE - SERUM 101 mmol/L (98-107); CREATININE - SERUM 0.7 mg/dL (0.6-1.3); GLUCOSE 326 mg/dL (74-106); POTASSIUM - SERUM 4.3 mmol/L (3.5-5.1); PROTEIN - SERUM 6.4 g/dL (6.4-8.2); SODIUM 137 mmol/L (136-145); UREA NITROGEN 3 mg/dL (7-18); eGFR NON AFRICAN AMERICAN > 90 mL/min (90-120)
[2018-04-29 08:19] VITALS: BP 141/94
[2018-04-29 11:07] VITALS: BP 156/93
[2018-04-29] MEDS ORDERED: LISINOPRIL10 MG PO (13:51)
[2018-04-29] MEDS ORDERED: NEURONTIN800 MG PO (13:51)
[2018-04-29] MEDS ORDERED: CYMBALTA30 MG PO (13:52)
[2018-04-29] MEDS ORDERED: CREON (PANCRELI1 CAP PO (13:55)
[2018-04-29] MEDS ORDERED: PROTONIX40 MG PO (13:56)
[2018-04-29] MEDS ORDERED: OXYCODONE HCL10 MG PO (14:09)
[2018-04-29] MEDS ORDERED: DOLOPHINE HCL10 MG PO (14:09)
== END 2018-04-29 17:24 | disposition home or self-care (01) | DRG 439 ==
LOC: D.ER 13:58 → D.MS 18:01
PROVIDERS: Emergency Medicine; Family Medicine
DX: K85.90 Acute pancreatitis without necrosis or infection, unspecified (principal); F17.213 Nicotine dependence, cigarettes, with withdrawal; K86.1 Other chronic pancreatitis; F10.10 Alcohol abuse, uncomplicated; F12.90 Cannabis use, unspecified, uncomplicated; Y90.6 Blood alcohol level of 120-199 mg/100 ml; I10 Essential (primary) hypertension; E11.65 Type 2 diabetes mellitus with hyperglycemia; Z79.4 Long term (current) use of insulin; E87.6 Hypokalemia; E86.0 Dehydration

== ENCOUNTER 2018-06-30 13:38 | Inpatient (IN) | payer OTHER ==
[~2018-06-30] VITALS: Ht 188 cm; Wt 63.5 kg
[2018-06-30 14:24] LABS: BASOPHILS 0.5 % (0-2); EOSINOPHILS 0.6 % (0-7); HEMATOCRIT 44.9 % (42.0-54.0); HEMOGLOBIN 15.3 g/dL (13.5-17.5); IMMATURE GRANULOCYTES 0.5 % (0-5); LYMPHOCYTES 15.4 % (15-50); MCH 30.5 pg (26.0-34.0); MCHC 34.1 g/dL (31.0-37.0); MCV 89.6 fL (80.0-100.0); MEAN PLATELET VOLUME 10.6 fL (7.4-10.4); MONOCYTES 7.8 % (2-11); NEUTROPHILS 75.2 % (40-80); RBC 5.01 10x6/uL (4.20-6.10); WBC 8.9 10x3/uL (4.8-10.8)
[2018-06-30 14:31] LABS: PLATELET COUNT 348 10x3/uL (130-400)
[2018-06-30 14:38] LABS: ALBUMIN 3.1 g/dL (3.4-5.0); ANION GAP 29.8 mmol/L (8-16); BILIRUBIN - TOTAL 0.66 mg/dL (0.2-1.3); CALCIUM 9.9 mg/dL (8.5-10.1); CARBON DIOXIDE 20.2 mmol/L (21.0-32.0); CREATININE - SERUM 1.2 mg/dL (0.6-1.3); PROTEIN - SERUM 8.1 g/dL (6.4-8.2)
[2018-06-30 15:24] LABS: APPEARANCE CLEAR (CLEAR); BILIRUBIN NEGATIVE (NEGATIVE); COLOR YELLOW (YELLOW); GLUCOSE 1000 mg/dL (NEGATIVE); KETONE LARGE mg/dL (NEGATIVE); NITRITE NEGATIVE (NEGATIVE); PROTEIN NEGATIVE (NEGATIVE); UROBILINOGEN NORMAL (NORMAL)
[2018-06-30 15:25] LABS: EPITHELIAL CELLS NSEEN /hpf (0-5); RED CELLS - URINE OCC /hpf (0-5); WHITE CELLS - URINE NSEEN /hpf (0-5)
[2018-06-30 18:30] VITALS: BP 107/71
--- NOTE | 2018-06-30 19:04 | MORECARE ---
CASE MANAGEMENT DISCHARGE SUMMARY PATIENT: GINGER GIMENEZ UNIT: [id number] ADM DATE: 06/30/18 AGE: 47 : 68 SEX: M ROOM/BED: D.E16 AUTHOR: DENNISDOC PHYSICIAN: REFERRING PHYSICIAN: ROSALBA VALLADARES MD DATE OF SERVICE: 06/30/18 Discharge Plan Patient Name: GINGER GIMENEZ Facility: [facility]:[place] : 1970 Planned Disposition: Anticipated Discharge Date: 07/02/18 Discharge Date: Expected LOS: 2 Initial Reviewer: [email or web address] Initial Review Date: 06/30/2018 Generated: 06/30/18 8:04 pm DCP- Discharge Planning Updated by [email or web address]: Collette Walker on 06/30/18 6:[address] Patient Name: GINGER GIMENEZ Admission Status: ER Accout number: [id number] Admission Date: 06-30-2018 : 1970 Admission Diagnosis: Attending: ROSALBA VALLADARES Current LOS: 1 Anticipated DC Date: 07-02-2018 Planned Disposition: Primary Insurance: [employer] MEDICAID Discharge Planning Comments: CM met with patient to complete initial dc planning assessment. CM educated patient on the CM role and verbal consent given by patient to complete assessment. Patient lives at home alone and reports he is independent with his ADL's and IADL's. At discharge patient plans to return home alone and feels this is a safe discharge. Patient denied known discharge needs at this time. CM will continue to follow and will assist as needed with dc plans/needs. Public Works Manager: Collette Walker RN, [facility] DCPIA - Discharge Planning Initial Assessment Updated by [email or web address]: Collette Walker on 06/30/18 6:59 pm * Is the patient Alert and Oriented? Yes * How many steps to enter\exit or inside your home? One * PCP Dr. Mccann * Pharmacy [facility] * Preadmission Environment Home with Family * ADLs Independent * Equipment None * List name and contact numbers for known caregivers / representatives who currently or will assist patient after discharge: Gaby Stewart - [employer] - [phone] * Verbal permission to speak to the caregivers and representatives has been obtained from the patient. Yes * Community resources currently utilized None * Additional services required to return to the preadmission environment? No * Can the patient safely return to the preadmission environment? Yes * Has this patient been hospitalized within the prior 30 days at any hospital? No Patient Name: GINGER GIMENEZ Page 36723 at 1904 All edits/amendments must be made on the electronic document DICTATION DATE: 06/30/181903 DRAINMAN: BLANK 06/30/181903 RPT#: [id number] DC DATE: STATUS: ADM IN [facility] [address] [place] [address] END OF REPORT
[2018-06-30] MEDS ORDERED: ALEVE220 MG PO (20:47)
[2018-06-30 20:58] VITALS: BP 119/75; BMI 18.0
[2018-07-01] VITALS: BP 106/73
[2018-07-01 04:00] VITALS: BP 97/63
[2018-07-01 07:25] LABS: BASOPHILS 0.1 % (0-2); EOSINOPHILS 1.2 % (0-7); HEMATOCRIT 37.7 % (42.0-54.0); IMMATURE GRANULOCYTES 0.3 % (0-5); LYMPHOCYTES 15.3 % (15-50); MCH 29.1 pg (26.0-34.0); MCHC 32.4 g/dL (31.0-37.0); MEAN PLATELET VOLUME 10.3 fL (7.4-10.4); NEUTROPHILS 75.1 % (40-80); RBC 4.19 10x6/uL (4.20-6.10); WBC 7.2 10x3/uL (4.8-10.8)
[2018-07-01 07:31] LABS: HEMOGLOBIN 12.2 g/dL (13.5-17.5); PLATELET COUNT 229 10x3/uL (130-400)
[2018-07-01 07:40] LABS: ALBUMIN 2.5 g/dL (3.4-5.0); ALKALINE PHOSPHATASE 241 U/L (46-116); AMYLASE - SERUM 62 U/L (25-115); BILIRUBIN - TOTAL 0.33 mg/dL (0.2-1.3); CALCIUM 8.8 mg/dL (8.5-10.1); CHLORIDE - SERUM 102 mmol/L (98-107); LIPASE 380 U/L (73-393); MAGNESIUM - SERUM 1.1 mg/dL (1.8-2.4); PROTEIN - SERUM 6.4 g/dL (6.4-8.2); SODIUM 141 mmol/L (136-145); UREA NITROGEN 13 mg/dL (7-18)
[2018-07-01 07:49] LABS: ALT (SGPT) 16 U/L (10-68); CALC OSMOLALITY 280 mosm/kg (275-300); CARBON DIOXIDE 26.7 mmol/L (21.0-32.0); CREATININE - SERUM 0.8 mg/dL (0.6-1.3); GLUCOSE 106 mg/dL (74-106); POTASSIUM - SERUM 3.1 mmol/L (3.5-5.1); eGFR NON AFRICAN AMERICAN > 90 mL/min (90-120)
[2018-07-01 13:11] VITALS: Ht 188 cm; Wt 63.5 kg
[2018-07-01] MEDS ORDERED: OXYCODONE HCL5 M1 PO (16:43)
== END 2018-07-01 17:06 | disposition home or self-care (01) | DRG 439 ==
LOC: D.ER 13:38 → D.WS 18:28 → D.EDHOLD 18:28 → D.WS 19:22
PROVIDERS: Family Medicine; ADMIT Family Medicine
DX: K85.90 Acute pancreatitis without necrosis or infection, unspecified (principal); K86.3 Pseudocyst of pancreas; F17.213 Nicotine dependence, cigarettes, with withdrawal; E11.65 Type 2 diabetes mellitus with hyperglycemia; I10 Essential (primary) hypertension; F12.90 Cannabis use, unspecified, uncomplicated